=== PATIENT | male | born 1965 | race Two or more races ===

== ENCOUNTER 2017-09-10 08:34 | Outpatient (CLI) | payer OTHER ==
[~2017-09-10 08:34] MED LIST: NABUMETONE500 MG PO; PERCOCET 5/3251 TAB PO
== END 2017-09-10 09:33 | disposition home or self-care (01) ==
LOC: EKG 08:34
DX: I49.9 Cardiac arrhythmia, unspecified (principal)

== ENCOUNTER 2017-09-10 08:41 | Outpatient (CLI) | payer OTHER | END 2017-09-10 09:28 | disposition home or self-care (01) | LOC: RAD 08:41 | DX: R06.02 Shortness of breath (principal); M25.542 Pain in joints of left hand ==

== ENCOUNTER 2017-11-24 08:35 | Outpatient (CLI) | payer OTHER | END 2017-11-24 08:37 | disposition home or self-care (01) | LOC: RAD 08:35 | DX: M25.551 Pain in right hip (principal); M25.552 Pain in left hip; M25.561 Pain in right knee; M25.562 Pain in left knee ==

== ENCOUNTER 2018-04-22 07:59 | Outpatient (CLI) | payer OTHER | END 2018-04-22 08:16 | disposition home or self-care (01) | LOC: RAD 07:59 | DX: S06.0X1D Concussion with loss of consciousness of 30 minutes or less, subsequent encounter (principal); M79.642 Pain in left hand ==

== ENCOUNTER → 2018-04-26 | Outpatient (CLI) | payer OTHER | END | disposition home or self-care (01) | LOC: RAD 16:05 | DX: S62.325A Displaced fracture of shaft of fourth metacarpal bone, left hand, initial encounter for closed fracture (principal) ==

== ENCOUNTER 2018-05-12 14:30 | Outpatient (CLI) | payer OTHER | END 2018-05-12 14:58 | disposition home or self-care (01) | LOC: RAD 14:30 | DX: S62.325A Displaced fracture of shaft of fourth metacarpal bone, left hand, initial encounter for closed fracture (principal) ==

== ENCOUNTER 2018-05-27 13:49 | Outpatient (CLI) | payer OTHER | END 2018-05-27 13:58 | disposition home or self-care (01) | LOC: NUCLEAR 13:49 | DX: M81.0 Age-related osteoporosis without current pathological fracture (principal) ==

== ENCOUNTER 2018-06-29 09:38 | Outpatient (CLI) | payer OTHER | END 2018-06-29 09:40 | disposition home or self-care (01) | LOC: RAD 09:38 | DX: S62.325D Displaced fracture of shaft of fourth metacarpal bone, left hand, subsequent encounter for fracture with routine healing (principal) ==

== ENCOUNTER → 2018-10-25 | Outpatient (CLI) | payer OTHER | END | disposition home or self-care (01) | LOC: RAD 501 10:49 | DX: M79.642 Pain in left hand (principal); M54.6 Pain in thoracic spine ==

== ENCOUNTER 2018-11-01 09:27 | Outpatient (CLI) | payer OTHER | END 2018-11-01 09:33 | disposition home or self-care (01) | LOC: RAD 501 09:27 | DX: M25.551 Pain in right hip (principal); M25.552 Pain in left hip; M25.511 Pain in right shoulder; M25.512 Pain in left shoulder ==

== ENCOUNTER 2019-02-28 11:24 | Outpatient (CLI) | payer OTHER | END 2019-02-28 11:40 | disposition home or self-care (01) | LOC: OFIC 805 11:24 | DX: R09.81 Nasal congestion (principal); J32.8 Other chronic sinusitis; J30.89 Other allergic rhinitis; J34.2 Deviated nasal septum ==

== ENCOUNTER → 2019-03-08 | Outpatient (CLI) | payer OTHER | END | disposition home or self-care (01) | LOC: RAD 08:30 → TOM 08:30 | DX: J32.8 Other chronic sinusitis (principal) ==

== ENCOUNTER 2019-03-17 14:09 | Outpatient (CLI) | payer OTHER ==
[~2019-03-17] VITALS: Ht 182.9 cm; Wt 96.2 kg
== END 2019-03-17 14:30 | disposition home or self-care (01) ==
LOC: OFIC 805 14:09
DX: R09.81 Nasal congestion (principal); J32.8 Other chronic sinusitis

== ENCOUNTER 2019-03-22 08:21 | Outpatient (CLI) | payer OTHER | END 2019-03-22 08:38 | disposition home or self-care (01) | LOC: SONOGRAMA 08:21 | DX: M75.51 Bursitis of right shoulder (principal); M75.52 Bursitis of left shoulder ==

== ENCOUNTER → 2019-05-11 | Outpatient (CLI) | payer OTHER ==
[~2019-05-11] VITALS: Ht 182.9 cm; Wt 96.2 kg
== END | disposition home or self-care (01) ==
LOC: OFIC 805 05-04 08:35
DX: J32.8 Other chronic sinusitis (principal); R09.81 Nasal congestion; J34.2 Deviated nasal septum

== ENCOUNTER 2019-06-01 11:44 | Outpatient (CLI) | payer OTHER ==
[~2019-06-01] VITALS: Ht 182.9 cm; Wt 96.2 kg
[2019-06-01] MEDS ORDERED: CEFUROXIME500 MG PO (13:17)
[2019-06-08] MEDS ORDERED: CELEBREX50 MG PO (14:11)
[2019-06-08] MEDS ORDERED: NAPROSYN125 MG/5 M PO (14:12)
[2019-06-08] MEDS ORDERED: CHANTIX0.5 MG PO (14:12)
== END 2019-06-01 12:00 | disposition home or self-care (01) ==
LOC: EDBD 11:44 → OFIC 805 11:44
DX: J32.4 Chronic pansinusitis (principal); R09.81 Nasal congestion; J34.2 Deviated nasal septum; J30.89 Other allergic rhinitis

== ENCOUNTER → 2019-06-08 06:00 | Outpatient (CLI) | payer OTHER ==
[~2019-06-08 06:00] MED LIST changes: +CEFUROXIME500 MG PO; +CELEBREX50 MG PO; +CHANTIX0.5 MG PO; +NAPROSYN125 MG/5 M PO
== END | disposition home or self-care (01) ==
LOC: LAB 06:00 → ADM 09:45 → CIR.AMB 06-28 07:00 → EDSTATUS 06-28 09:45 → CIR.AMB 06-28 12:00
DX: J32.4 Chronic pansinusitis (principal); Z01.810 Encounter for preprocedural cardiovascular examination; Z01.812 Encounter for preprocedural laboratory examination; Z01.811 Encounter for preprocedural respiratory examination

== ENCOUNTER → 2019-06-16 | Outpatient (CLI) | payer OTHER | END | disposition home or self-care (01) | LOC: RAD 07:26 | DX: M16.12 Unilateral primary osteoarthritis, left hip (principal) ==

== ENCOUNTER 2019-07-14 19:24 | Outpatient (CLI) | payer OTHER | END 2019-07-14 19:33 | disposition home or self-care (01) | LOC: RAD 19:24 → EDBD 19:24 → RAD 19:33 | DX: I10 Essential (primary) hypertension (principal) ==

== ENCOUNTER 2019-08-19 08:02 | Outpatient (CLI) | payer OTHER | END 2019-08-19 15:00 | disposition home or self-care (01) | LOC: LAB 08:02 | DX: I10 Essential (primary) hypertension (principal); E83.42 Hypomagnesemia ==

== ENCOUNTER 2019-09-21 07:34 | Outpatient (CLI) | payer OTHER | END 2019-09-21 07:42 | disposition home or self-care (01) | LOC: LAB 07:34 | DX: Z22.322 Carrier or suspected carrier of Methicillin resistant Staphylococcus aureus (principal) ==

== ENCOUNTER → 2019-10-01 11:50 | Outpatient (CLI) | payer OTHER | END | disposition home or self-care (01) | LOC: LAB 11:50 | DX: Z22.322 Carrier or suspected carrier of Methicillin resistant Staphylococcus aureus (principal) ==

== ENCOUNTER 2019-10-04 07:42 | Outpatient (CLI) | payer OTHER ==
[2019-10-07] MEDS ORDERED: VALTREX1000 MG PO (15:32)
== END 2019-10-04 08:00 | disposition home or self-care (01) ==
LOC: LAB 07:42 → EDBD 07:42 → LAB 08:00
DX: M06.4 Inflammatory polyarthropathy (principal); D64.89 Other specified anemias; E88.89 Other specified metabolic disorders; D68.8 Other specified coagulation defects; N39.0 Urinary tract infection, site not specified; I20.8 Other forms of angina pectoris

== ENCOUNTER 2019-11-03 12:10 | Outpatient (CLI) | payer OTHER ==
[~2019-11-03 12:10] MED LIST changes: +VALTREX1000 MG PO
== END 2019-11-03 12:18 | disposition home or self-care (01) ==
LOC: RAD 12:10
DX: S32.492A Other specified fracture of left acetabulum, initial encounter for closed fracture (principal)

== ENCOUNTER 2019-12-13 09:56 | Outpatient (CLI) | payer OTHER | END 2019-12-13 15:00 | disposition home or self-care (01) | LOC: LAB 09:56 | DX: D64.89 Other specified anemias (principal); E88.89 Other specified metabolic disorders; D68.8 Other specified coagulation defects; N39.0 Urinary tract infection, site not specified; Z22.322 Carrier or suspected carrier of Methicillin resistant Staphylococcus aureus; Z76.89 Persons encountering health services in other specified circumstances; I10 Essential (primary) hypertension; I49.8 Other specified cardiac arrhythmias ==

== ENCOUNTER 2019-12-20 06:00 | Inpatient (IN) | payer OTHER ==
[~2019-12-20] VITALS: Ht 188 cm; Wt 90.7 kg
[2019-12-21] MEDS ORDERED: CELECOXIB200 MG (08:30)
[2019-12-21] MEDS ORDERED: AMOX-CLAV 875-1 EACH (08:30)
== END 2019-12-23 11:37 | disposition home or self-care (01) | DRG 470 ==
LOC: SURG 06:00 → O/R 06:00 → SURH 07:00 → MEDI 15:54 → SURG 15:58
PROVIDERS: ADMIT Orthopaedic Surgery; ATTEND Orthopaedic Surgery
PROC: 0SRS039 Replacement of Left Hip Joint, Femoral Surface with Ceramic Synthetic Substitute, Cemented, Open Approach (ICD-10-PCS; principal; 2019-12-20 07:00)
DX: M16.12 Unilateral primary osteoarthritis, left hip (principal); Q65.89 Other specified congenital deformities of hip; D64.9 Anemia, unspecified

== ENCOUNTER 2020-01-12 16:46 | Outpatient (CLI) | payer OTHER ==
[~2020-01-12 16:46] MED LIST changes: +AMOX-CLAV 875-1 EACH; +CELECOXIB200 MG
== END 2020-01-12 16:59 | disposition home or self-care (01) ==
LOC: RAD 16:46
PROVIDERS: ATTEND Orthopaedic Surgery
DX: Z96.642 Presence of left artificial hip joint (principal)

== ENCOUNTER 2020-03-16 14:14 | Outpatient (CLI) | payer OTHER | END 2020-03-16 14:43 | disposition home or self-care (01) | LOC: TOM 14:14 | PROVIDERS: ATTEND Orthopaedic Surgery | DX: M16.11 Unilateral primary osteoarthritis, right hip (principal) ==

== ENCOUNTER 2020-07-25 15:30 | Outpatient (CLI) | payer OTHER | END 2020-07-25 15:36 | disposition HB | LOC: RAD 15:30 | PROVIDERS: ATTEND Orthopaedic Surgery | DX: M25.562 Pain in left knee (principal); M24.552 Contracture, left hip; Z96.642 Presence of left artificial hip joint ==

== ENCOUNTER 2020-08-30 11:33 | Outpatient (CLI) | payer OTHER | END 2020-08-30 11:40 | disposition home or self-care (01) | LOC: RAD 11:33 | PROVIDERS: ATTEND Physical Medicine & Rehabilitation | DX: M16.11 Unilateral primary osteoarthritis, right hip (principal) ==

== ENCOUNTER 2020-12-05 11:49 | Outpatient (CLI) | payer OTHER | END 2020-12-05 12:06 | disposition home or self-care (01) | LOC: RAD 11:49 | PROVIDERS: ATTEND Orthopaedic Surgery | DX: Z96.643 Presence of artificial hip joint, bilateral (principal) ==

== ENCOUNTER 2021-02-28 12:16 | Outpatient (CLI) | payer OTHER | END 2021-02-28 12:29 | disposition home or self-care (01) | LOC: RAD 12:16 | PROVIDERS: ATTEND Orthopaedic Surgery | DX: M25.511 Pain in right shoulder (principal); M25.512 Pain in left shoulder; M25.551 Pain in right hip; M25.552 Pain in left hip; M25.561 Pain in right knee; M25.562 Pain in left knee ==

== ENCOUNTER 2021-03-19 10:39 | Outpatient (CLI) | payer OTHER | END 2021-03-19 10:42 | disposition home or self-care (01) | LOC: NUCLEAR 10:39 | PROVIDERS: ATTEND Orthopaedic Surgery | DX: M25.551 Pain in right hip (principal); M25.552 Pain in left hip | CPT/HCPCS: 78315; A9503 ==

== ENCOUNTER 2021-03-26 13:10 | Outpatient (CLI) | payer OTHER | END 2021-03-26 13:15 | disposition home or self-care (01) | LOC: NUCLEAR 13:10 | PROVIDERS: ATTEND Orthopaedic Surgery | DX: M25.552 Pain in left hip (principal); Z96.642 Presence of left artificial hip joint | CPT/HCPCS: 78804; A9556 ==

== ENCOUNTER 2021-10-01 12:12 | Outpatient (CLI) | payer OTHER | END 2021-10-01 12:24 | disposition home or self-care (01) | LOC: TOM 12:12 | PROVIDERS: ATTEND Orthopaedic Surgery | DX: M54.50 Low back pain, unspecified (principal) ==

== ENCOUNTER 2021-10-02 14:56 | Outpatient (CLI) | payer OTHER | END 2021-10-02 14:59 | disposition home or self-care (01) | LOC: RAD 14:56 | PROVIDERS: ATTEND Orthopaedic Surgery | DX: M54.50 Low back pain, unspecified (principal) ==

== ENCOUNTER 2022-05-02 12:05 | Outpatient (CLI) | payer OTHER | END 2022-05-02 12:32 | disposition home or self-care (01) | LOC: RAD 12:05 | DX: M16.0 Bilateral primary osteoarthritis of hip (principal) ==